=== PATIENT | male | born 1955 | race Native Hawaiian/Other Pacific Islander ===

== ENCOUNTER 2017-06-10 14:01 | Outpatient (CLI) | payer OTHER ==
[~2017-06-10 14:01] MED LIST: AMIT10TA21 PO; CYCL10TA35 PO; DULO30CA PO; HYDR2TAB12 PO; LYRICA75 MG PO; NEURONTIN800 MG PO
== END 2017-06-10 19:06 | disposition home or self-care (01) ==
LOC: MRI 14:01
DX: M54.17 Radiculopathy, lumbosacral region (principal); M54.12 Radiculopathy, cervical region; M54.14 Radiculopathy, thoracic region

== ENCOUNTER 2017-06-13 08:07 | Outpatient (CLI) | payer OTHER | END 2017-06-13 23:32 | disposition home or self-care (01) | LOC: MRI 08:07 | DX: M54.17 Radiculopathy, lumbosacral region (principal); M54.12 Radiculopathy, cervical region; M54.14 Radiculopathy, thoracic region ==